=== PATIENT | female | born 1985 ===

== ENCOUNTER 2017-05-20 23:24 | Emergency (ER) | payer SELFPAY ==
[~2017-05-20] VITALS: Ht 160 cm; Wt 83.6 kg
[2017-05-20 23:31] VITALS: Ht 160 cm; Wt 83.6 kg
[2017-05-21] MEDS ORDERED: KETOROLAC 15 MG INJ IM STA (00:20)
--- NOTE | 2017-05-21 00:20 | ERD ---
ER Documentation Chief Complaint Chief Complaint R hip pain today, no injury HPI This 32-year-old female presents to emergency department for evaluation of right sided back pain x one day , pt reports that the pain is shooting down right leg, pt reports that pain started suddenly when she stood up from a seated position . pt reports that she can only partial weight bear. History of injury, denies history of back pain. ROS All systems reviewed and are negative except as per history of present illness. Medications Home Meds Active Scripts Nitrofurantoin Monohyd Macrocr* (Macrobid*) 100 Mg Capsr, 100 MG PO BID for 7 Days, #14 CAP Prov:SIN,MONIQUE 05/21/17 Diazepam* (Valium*) 5 Mg Tablet, 5 MG PO Q8, #10 TAB Prov:SIN,MONIQUE 05/21/17 Famotidine* (Pepcid*) 20 Mg Tablet, 20 MG PO BID for 10 Days, #20 TAB Prov:SIN,MONIQUE 05/21/17 Naproxen* (Naprosyn*) 500 Mg Tablet, 500 MG PO BID Y for PAIN AND/OR INFLAMMATION, #20 TAB Prov:SIN,MONIQUE 05/21/17 Allergies Allergies: Coded Allergies: No Known Allergy (Unverified , 05/20/17) PMhx/Soc Medical and Surgical Hx: pt denies Medical Hx, pt denies Surgical Hx Hx Alcohol Use: No Hx Substance Use: No Hx Tobacco Use: No Smoking Status: Never smoker Physical Exam Vitals Vital Signs Date Time Temp Pulse Resp B/P Pulse Ox O2 Delivery O2 Flow Rate FiO2 05/20/17 23:31 99.4 68 20 124/74 98 Stable, triage notes reviewed Physical Exam Const: Nourished well-appearing obese female with large pannus obvious discomfort no acute distress Head: Eyes: ENT: Neck: Resp: Cardio: Abd: Abdomen soft, nontender, obese, patient has lumbar pain, negative CVA tenderness Back: No flank pain Skin: No bruising or rash Compartments: Soft Motor: Normal range of motion, patient unable to get herself out of wheelchair assessment done in a seated position, difficulty raising right leg off of wheelchair, pain with flexion, extension, abduction and abduction. Sensation: Intact to light touch throughout Bones: No midline TTP Ext: No cyanosis, or edema Neur: Awake and alert Psych: Normal Mood and Affect Results 24 hrs Laboratory Tests Test 05/21/17 02:19 Bedside Urine pH (LAB) 7.0 Bedside Urine Protein (LAB) Negative Bedside Urine Glucose (UA) Negative Bedside Urine Ketones (LAB) Negative Bedside Urine Blood 3+ Bedside Urine Nitrite (LAB) Positive Bedside Urine Leukocyte Esterase (L Trace Current Medications Medications (Trade) Dose Ordered Sig/Yusra Route PRN Reason Start Time Stop Time Status Last Admin Dose Admin Ketorolac Tromethamine (Toradol) 15 mg ONCE STAT IM 05/21/17 00:20 05/21/17 00:23 DC 05/21/17 02:14 Diazepam (Valium) 5 mg ONCE ONCE PO 05/21/17 00:30 05/21/17 00:31 DC 05/21/17 02:14 Urinalysis positive for leukocytosis, nitrates, and microscopic hematuria, findings are consistent for urinary tract infection Procedures/MDM PROCEDURE: Lumbar spine. CLINICAL INDICATION: Low back pain. TECHNIQUE: Three views including AP, lateral and cone-down lateral view of the lumbar spine were obtained. COMPARISON: None. FINDINGS: There is no acute fracture or subluxation. Lumbar vertebral body heights and alignment are within normal limits. Intervertebral disk spaces are within normal limits. The posterior elements are unremarkable. IMPRESSION: No evidence of fracture or subluxation. .Bronson Ventura MD, Date Time Electronically viewed and signed by .Bronson Ventura MD, MD on 05/21/2017 02:04 This 32-year-old female presents to emergency department with sudden onset of right-sided back pain, pain started today when she coco from a seated position and felt a pop. She has not been able to fully weight-bear ever since. Patient reports pain with any movement, denies history of back pain, injury, dysuria. Patient reports trying ibuprofen with little relief of symptoms. Emergency room course includes history and physical exam, plan to x-rays lumbar spine, patient's pain treated with Toradol, Valium, patient reassessed after 40 minutes with movement of symptoms. X-ray findings per radiologist; straightening, spurring, or disc space narrowing. Air and stool noted on x-ray , urinalysis positive for evidence of leukocytosis and nitrates, plan to treat with Macrobid 100 mg 1 tab p.o. twice daily 7 days.. Increase fluids, increase rest. Charge patient home with Rita Ramos, instructions to follow-up with primary care physician for referral to physical therapy, return to emergency department for alteration in bowel or bladder Patient is stable with no new complaints during ER course, clinically there is no current evidence to suggest meningitis, sepsis, acute abdomen, cauda equina syndrome, spinal cord abscess, spinal cord lesion or any other emergent condition appearing to require further evaluation or hospitalization. I feel the patient is stable for discharge at this time. I have discussed results, examination findings, the treatment plan with the patient and family present prior to discharge. Indications for emergent reevaluation, side effects of medication were also discussed. All questions were answered. Patient verbalizes understanding and agrees with plan of care. Departure Diagnosis: Primary Impression: Lumbar pain Additional Impression: UTI (urinary tract infection) Urinary tract infection type: acute cystitis Hematuria presence: with hematuria Qualified Code: N30.01 - Acute cystitis with hematuria Condition: Good Patient Instructions: Back Pain W/ Sciatica, Causes of Lumbar (Low Back) Pain Additional Instructions: Thank you for for coming to [facility] for your care today. Please ask your nurse or provider if you have questions about your care today and do not leave until all your questions have been answered. Please use any medications given as directed and follow-up with your doctor (or the doctor you were referred to) in the next 2-3 days. If you do not have a primary care doctor you may follow up at the [facility] (listed below). You may also use motrin and tylenol as needed for fever and/or pain unless instructed otherwise by your provider or nurse. Indications for more urgent follow-up have been discussed, but you may return to the Emergency Department at ANY time for any worrisome or worsening symptoms. If you have abdominal pain, please know that no test or exam you received is perfect and you should follow up within 8 hours for continued pain. If you had any imaging studies today, such as an X-Ray or CT Scan, these studies will be reviewed later by a radiologist. You will be called if there are important findings that were not identified today, so make sure the contact information you provided at registration is correct. If you received any narcotic pain control medicine today, such as Vicodin, Morphine or Dilaudid, your coordination and judgment may be affected for a number of hours. Please do not drive or operate heavy machinery, and you may want someone to assist you at home. If you were given a prescription for narcotic medication, be aware that it is very addictive- use sparingly and only if necessary. MONIQUE VOGT May 21, 2017 00:20
[2017-05-21] MEDS ORDERED: DIAZEPAM 5 MG TAB PO ONE (00:30)
[2017-05-21] MEDS ORDERED: DIAZ-90 PO (01:55)
[2017-05-21] MEDS ORDERED: FAMO-96 PO (01:55)
[2017-05-21] MEDS ORDERED: NAPR-260 PO (01:55)
--- NOTE | 2017-05-21 02:05 | RADRPT ---
PROCEDURE: Lumbar spine. CLINICAL INDICATION: Low back pain. TECHNIQUE: Three views including AP, lateral and cone-down lateral view of the lumbar spine were obtained. COMPARISON: None. FINDINGS: There is no acute fracture or subluxation. Lumbar vertebral body heights and alignment are within n ormal limits. Intervertebral disk spaces are within normal limits. The posterior elements are unre markable. IMPRESSION: No evidence of fracture or subluxation. .Bronson Ventura MD, MD Date Time Electronically viewed and signed by .Bronson Ventura MD, on 05/21/2017 02:04 .T/
[2017-05-21 02:20] LABS: URINE BLOOD (Dip) POC 3+ (NEGATIVE)
[2017-05-21] MEDS ORDERED: NITR-58 PO (02:25)
[2017-05-21 02:40] VITALS: BP 139/65; PULSE 64; RESP 19; TEMP 97.9
== END 2017-05-21 02:42 | disposition home or self-care (01) ==
LOC: FTE 23:24
DX: N30.01 Acute cystitis with hematuria (principal); M54.5 Low back pain
CPT/HCPCS: 72100; 81003; 96372; 99284; J1885